=== PATIENT | female | born 1955 | race Two or more races ===

== ENCOUNTER 2024-01-22 15:50 | Emergency (ER) | payer MEDICARE, BC ==
[~2024-01-22] VITALS: Ht 162.6 cm; Wt 68.9 kg
[2024-01-22] MEDS ORDERED: LIDOCAINE HCL/MPF 1% 30 ML VIAL IJ ONE (17:17)
[2024-01-22] MEDS ORDERED: LIDOCAINE 0.5% HCL 50 ML VIAL IJ ONE (17:30)
[2024-01-22] MEDS: TDAP [DIPH/PERTUSSIS/TET] 0.5 ML VIAL IM ONE (18:30)
[2024-01-22] MEDS ORDERED: IBUP-1953 PO (18:34)
[2024-01-22] MEDS ORDERED: TDAP [DIPH/PERTUSSIS/TET] 0.5 ML VIAL IM ONE (18:40)
[2024-01-22 19:26] VITALS: BP 136/72; TEMP 97.9; O2SAT 99
== END 2024-01-22 18:38 | disposition home or self-care (01) ==
LOC: ER 16:16
DX: S61.012A Laceration without foreign body of left thumb without damage to nail, initial encounter (principal); I10 Essential (primary) hypertension; Z88.0 Allergy status to penicillin; Z88.6 Allergy status to analgesic agent; W45.8XXA Other foreign body or object entering through skin, initial encounter; Y93.89 Activity, other specified; Y92.89 Other specified places as the place of occurrence of the external cause; Y99.8 Other external cause status
CPT/HCPCS: 12002; 90471; 90715; 99283; A6403; J3490

== ENCOUNTER → 2024-02-01 | Emergency (ER) | payer MEDICARE, BC ==
[~2024-02-01] VITALS: Ht 162.6 cm; Wt 68.9 kg
[~2024-02-01] MED LIST: IBUP-1953 PO; SULFAMETH/TRIMETH 800/160 MG 1 UDTAB TABLET PO ONE
[2024-02-01 14:06] VITALS: BP 125/81; TEMP 98.2; O2SAT 97
== END | disposition home or self-care (01) ==
LOC: ER 14:04
DX: S61.012D Laceration without foreign body of left thumb without damage to nail, subsequent encounter (principal); I10 Essential (primary) hypertension; Z48.02 Encounter for removal of sutures; Z88.0 Allergy status to penicillin; X58.XXXD Exposure to other specified factors, subsequent encounter

== ENCOUNTER 2024-04-12 12:26 | Emergency (ER) | payer MEDICARE, BC ==
[~2024-04-12] VITALS: Ht 157.5 cm; Wt 68.0 kg
[~2024-04-12 12:26] MED LIST changes: -SULFAMETH/TRIMETH 800/160 MG 1 UDTAB TABLET PO ONE
[2024-04-12 13:12] VITALS: BP 161/86; TEMP 99.1; O2SAT 97
== END 2024-04-12 13:25 | disposition home or self-care (01) ==
LOC: ER 12:26
DX: L91.0 Hypertrophic scar (principal); I10 Essential (primary) hypertension; Z88.0 Allergy status to penicillin